=== PATIENT | female | born 1930 | race Caucasian/White ===

== ENCOUNTER 2017-08-07 10:54 | Inpatient (IN) | payer MEDICARE, OTHER ==
[2017-08-07] MEDS: NITROGLYCERIN 2% 1 GM OINT PKT TD (12:51)
[2017-08-07] MEDS: ASPIRIN 81 MG TAB PO (12:51)
[2017-08-07] MEDS ORDERED: NITROGLYCERIN (SL) 0.4 MG TAB SL ×2 (13:00→14:30)
[2017-08-07 13:06] LABS: ADD MAN DIFF? NO
[2017-08-07] MEDS: SOD CHLORIDE 0.9% 1,000 ML IV (13:09)
[2017-08-07 13:12] LABS: WHITE BLOOD COUNT 10.4 10^3/ul (4.8-10.8)
[2017-08-07 13:12] LABS: BASOPHIL # 0.1 10^3/ul (0.0-0.1); BASOPHILS % 0.7 % (0.0-2.0); EOSINOPHILS # 0.1 10^3/ul (0.0-0.5); EOSINOPHILS % 0.9 % (0.0-7.0); HEMATOCRIT 46.2 % (37.0-47.0); HEMOGLOBIN 14.8 g/dl (12.0-16.0); LYMPHOCYTES # 1.4 10^3/ul (0.8-2.9); LYMPHOCYTES % 13.4 % (15.0-51.0); MEAN CORPUSCULAR HEMOGLOBIN 30.2 pg (29.0-33.0); MEAN CORPUSCULAR VOLUME 94.3 fl (82.0-101.0); MEAN PLATELET VOLUME 12.4 fl (7.4-10.4); MONOCYTE # 0.9 10^3/ul (0.3-0.9); MONOCYTES % 8.3 % (0.0-11.0); NEUTROPHILS % 76.4 % (39.0-77.0); PLATELET COUNT 232 10^3/UL (140-415); RED CELL DISTRIBUTION WIDTH 13.1 % (11.5-14.5)
[2017-08-07 13:27] LABS: ANION GAP 15 (8-16); BLOOD UREA NITROGEN 16 mg/dl (7-20); CALCIUM 9.4 mg/dl (8.4-10.2); CARBON DIOXIDE 32 mmol/L (21-31); CHLORIDE 100 mmol/L (97-110); GLUCOSE 94 mg/dl (70-220); POTASSIUM 4.2 mmol/L (3.5-5.1); SODIUM 143 mmol/L (135-144)
[2017-08-07 13:39] LABS: TROPONIN-I 0.025 ng/ml (0.00-0.12)
[2017-08-07] MEDS ORDERED: ACETAMINOPHEN 325 MG TAB PO ×2 (14:00→14:30)
[2017-08-07] MEDS ORDERED: ONDANSETRON 4 MG INJ IV ×2 (14:00→14:30)
[2017-08-07] MEDS ORDERED: morphine 2 MG INJ IV (14:30)
[2017-08-07] MEDS ORDERED: HYDROCODONE/APAP (5/325) TAB PO (14:30)
[2017-08-07] MEDS ORDERED: NACL 0.9% 3 ML SYG IV (14:30)
[2017-08-07 14:54] LABS: HEMOGLOBIN A1C 5.4 % (0-5.9)
[2017-08-07] MEDS: IODIXANOL LOCM 100 ML BTL (14:54)
[2017-08-07] MEDS: SOD CHLORIDE 0.9% 100 ML (14:55)
[2017-08-07] MEDS: IODIXANOL LOCM 50 ML BTL (14:55)
[2017-08-07 15:00] LABS: B-TYPE NATRIURETIC PEPTIDE 11300 PG/ML (0-450)
[2017-08-07] MEDS ORDERED: hydrALAzine 20 MG INJ IV (15:00)
[2017-08-07 15:08] LABS: FREE T4 (FREE THYROXINE) 1.51 ng/dl (0.85-1.93)
[2017-08-07] MEDS: FUROSEMIDE 40 MG INJ IV (17:41)
[2017-08-07 18:07] LABS: ADD UMIC YES; UR ASCORBIC ACID NEGATIVE (NEGATIVE); UR BACTERIA MODERATE /HPF (NONE SEEN); UR BILIRUBIN (Dip) NEGATIVE (NEGATIVE); UR BLOOD (Dip) 2+ mg/dL (NEGATIVE); UR CLARITY CLEAR (CLEAR); UR COLOR YELLOW (YELLOW); UR GLUCOSE (Dip) NEGATIVE (NEGATIVE); UR KETONES (Dip) NEGATIVE (NEGATIVE); UR LEUKOCYTE ESTERASE (Dip) NEGATIVE Leu/ul (NEGATIVE); UR NITRITE (Dip) POSITIVE (NEGATIVE); UR RBC 2 /HPF (0-5); UR TOTAL PROTEIN (Dip) 1+ mg/dl (NEGATIVE); UR UROBILINOGEN (Dip) NEGATIVE (NEGATIVE); UR WBC 1 /HPF (0-5)
[2017-08-07 18:37] LABS: CREATINE KINASE 46 IU/L (23-200)
[2017-08-07 18:49] LABS: CK INDEX 1.8; CK-MB 0.83 ng/ml (0.0-2.4); TROPONIN-I 0.033 ng/ml (0.00-0.12)
[2017-08-08 01:36] LABS: CREATINE KINASE 40 IU/L (23-200)
[2017-08-08 01:47] LABS: CK INDEX 1.8; CK-MB 0.73 ng/ml (0.0-2.4); TROPONIN-I 0.046 ng/ml (0.00-0.12)
[2017-08-08] MEDS: FUROSEMIDE 40 MG INJ IV ×2 (05:39→18:16)
[2017-08-08] MEDS: SPIRONOLACTONE 25 MG TAB PO (05:40)
[2017-08-08 07:25] LABS: ADD MAN DIFF? NO
[2017-08-08 07:31] LABS: BASOPHIL # 0.1 10^3/ul (0.0-0.1); BASOPHILS % 0.9 % (0.0-2.0); EOSINOPHILS # 0.3 10^3/ul (0.0-0.5); EOSINOPHILS % 3.4 % (0.0-7.0); HEMATOCRIT 45.1 % (37.0-47.0); HEMOGLOBIN 14.4 g/dl (12.0-16.0); LYMPHOCYTES # 1.1 10^3/ul (0.8-2.9); LYMPHOCYTES % 13.7 % (15.0-51.0); MEAN CORPUSCULAR HEMOGLOBIN 30.1 pg (29.0-33.0); MEAN CORPUSCULAR HGB CONC 31.9 g/dl (32.0-37.0); MEAN CORPUSCULAR VOLUME 94.4 fl (82.0-101.0); MEAN PLATELET VOLUME 12.3 fl (7.4-10.4); MONOCYTE # 0.8 10^3/ul (0.3-0.9); MONOCYTES % 10.2 % (0.0-11.0); NEUTROPHIL # 5.5 10^3/ul (1.6-7.5); NEUTROPHILS % 71.5 % (39.0-77.0); PLATELET COUNT 218 10^3/UL (140-415); RED BLOOD COUNT 4.78 10^6/ul (4.20-5.40)
[2017-08-08 07:31] LABS: WHITE BLOOD COUNT 7.7 10^3/ul (4.8-10.8)
[2017-08-08 07:53] LABS: ALANINE AMINOTRANSFERASE 29 IU/L (13-69); ALBUMIN 3.6 g/dl (3.3-4.9); ALBUMIN/GLOBULIN RATIO 1.24; ALKALINE PHOSPHATASE 60 IU/L (42-121); ANION GAP 13 (8-16); ASPARTATE AMINO TRANSFERASE 25 IU/L (15-46); BILIRUBIN,INDIRECT 0.4 mg/dl (0-1.1); BILIRUBIN,TOTAL 0.4 mg/dl (0.2-1.3); BLOOD UREA NITROGEN 16 mg/dl (7-20); CALCIUM 9.3 mg/dl (8.4-10.2); CARBON DIOXIDE 35 mmol/L (21-31); CHLORIDE 98 mmol/L (97-110); CREATININE 0.83 mg/dl (0.44-1.00); GLUCOSE 94 mg/dl (70-220); POTASSIUM 4.1 mmol/L (3.5-5.1); SODIUM 142 mmol/L (135-144); TOTAL PROTEIN 6.5 g/dl (6.1-8.1)
[2017-08-08 07:54] LABS: PHOSPHORUS 4.7 mg/dl (2.5-4.9)
[2017-08-08 07:54] LABS: CHOL/HDL RATIO 3.7 RATIO; CHOLESTEROL 156 mg/dl (100-200); HDL CHOLESTEROL 42 mg/dl (33-92); LDL CHOLESTEROL,CALCULATED 99 mg/dl; MAGNESIUM 1.7 mg/dl (1.7-2.5); TRIGLYCERIDES 77 mg/dl (0-149)
[2017-08-08 07:58] LABS: B-TYPE NATRIURETIC PEPTIDE 11000 PG/ML (0-450); INR 1.09; PROTIME 14.3 Sec (11.9-14.9); PT RATIO 1.1
[2017-08-08 07:59] LABS: PARTIAL THROMBOPLASTIN TIME 39.2 Sec (25.0-35.0)
[2017-08-08] MEDS: LEVOTHYROXINE 25 MCG TAB PO (08:40)
[2017-08-08] MEDS: ASPIRIN 81 MG TAB PO (08:41)
[2017-08-08] MEDS: VALSARTAN 80 MG TAB PO (08:41)
[2017-08-08] MEDS: ENOXAPARIN 40 MG/0.4 ML SYG SC (08:48)
[2017-08-08] MEDS: CEFTRIAXONE 1 GM/50 ML (PMX) 50 ML IVPB (13:00)
[2017-08-08] MEDS: FUROSEMIDE 40 MG TAB PO (15:00)
[2017-08-08] MEDS: DOCUSATE SODIUM 100 MG CAP PO (21:10)
[2017-08-08] MEDS: POLYETHYLENE GLYCOL 17 GM PACKET PO (21:11)
[2017-08-09] MEDS: LEVOTHYROXINE 25 MCG TAB PO (06:16)
[2017-08-09] MEDS: SPIRONOLACTONE 25 MG TAB PO (06:16)
[2017-08-09] MEDS: FUROSEMIDE 40 MG INJ IV ×2 (06:16→18:39)
[2017-08-09 07:08] LABS: ADD MAN DIFF? NO
[2017-08-09 07:13] LABS: WHITE BLOOD COUNT 7.8 10^3/ul (4.8-10.8)
[2017-08-09 07:13] LABS: BASOPHIL # 0.1 10^3/ul (0.0-0.1); BASOPHILS % 0.8 % (0.0-2.0); EOSINOPHILS # 0.3 10^3/ul (0.0-0.5); EOSINOPHILS % 4.2 % (0.0-7.0); HEMATOCRIT 46.6 % (37.0-47.0); HEMOGLOBIN 14.8 g/dl (12.0-16.0); LYMPHOCYTES # 1.2 10^3/ul (0.8-2.9); LYMPHOCYTES % 14.8 % (15.0-51.0); MEAN CORPUSCULAR HEMOGLOBIN 30.3 pg (29.0-33.0); MEAN CORPUSCULAR HGB CONC 31.8 g/dl (32.0-37.0); MEAN CORPUSCULAR VOLUME 95.3 fl (82.0-101.0); MEAN PLATELET VOLUME 12.2 fl (7.4-10.4); MONOCYTE # 0.8 10^3/ul (0.3-0.9); MONOCYTES % 10.7 % (0.0-11.0); NEUTROPHIL # 5.4 10^3/ul (1.6-7.5); NEUTROPHILS % 69.2 % (39.0-77.0); PLATELET COUNT 210 10^3/UL (140-415); RED BLOOD COUNT 4.89 10^6/ul (4.20-5.40); RED CELL DISTRIBUTION WIDTH 12.8 % (11.5-14.5)
[2017-08-09 07:31] LABS: BLOOD UREA NITROGEN 20 mg/dl (7-20); CHLORIDE 94 mmol/L (97-110); CREATININE 0.86 mg/dl (0.44-1.00); GLUCOSE 95 mg/dl (70-220); POTASSIUM 4.2 mmol/L (3.5-5.1); SODIUM 141 mmol/L (135-144)
[2017-08-09 07:35] LABS: PHOSPHORUS 4.3 mg/dl (2.5-4.9)
[2017-08-09 07:35] LABS: MAGNESIUM 1.8 mg/dl (1.7-2.5)
[2017-08-09 07:36] LABS: B-TYPE NATRIURETIC PEPTIDE 5930 PG/ML (0-450)
[2017-08-09 08:13] LABS: ANION GAP 13 (8-16); CARBON DIOXIDE 38 mmol/L (21-31)
[2017-08-09] MEDS: DOCUSATE SODIUM 100 MG CAP PO ×2 (09:17→20:20)
[2017-08-09] MEDS: POLYETHYLENE GLYCOL 17 GM PACKET PO (09:17)
[2017-08-09] MEDS: ASPIRIN 81 MG TAB PO (09:17)
[2017-08-09] MEDS: VALSARTAN 80 MG TAB PO (09:17)
[2017-08-09] MEDS: FUROSEMIDE 40 MG TAB PO (09:18)
[2017-08-09] MEDS: ENOXAPARIN 40 MG/0.4 ML SYG SC (09:20)
[2017-08-09] MEDS: CEFTRIAXONE 1 GM/50 ML (PMX) 50 ML IVPB (13:11)
[2017-08-09] MEDS: BISACODYL (EC) 5 MG TAB PO (13:12)
[2017-08-09] MEDS: ISOSORBIDE DINITRATE 10 MG TAB PO (20:17)
[2017-08-10] MEDS: LEVOTHYROXINE 25 MCG TAB PO (05:57)
[2017-08-10] MEDS: FUROSEMIDE 40 MG INJ IV ×2 (05:58→17:30)
[2017-08-10] MEDS: SPIRONOLACTONE 25 MG TAB PO (05:58)
[2017-08-10 06:59] LABS: BLOOD UREA NITROGEN 30 mg/dl (7-20); CHLORIDE 93 mmol/L (97-110); CREATININE 0.88 mg/dl (0.44-1.00); GLUCOSE 109 mg/dl (70-220); SODIUM 141 mmol/L (135-144)
[2017-08-10 07:30] LABS: ANION GAP 11 (8-16)
[2017-08-10 07:32] LABS: CARBON DIOXIDE 41 mmol/L (21-31)
[2017-08-10 07:46] LABS: CALCIUM 8.9 mg/dl (8.4-10.2)
[2017-08-10] MEDS: VALSARTAN 80 MG TAB PO (09:15)
[2017-08-10] MEDS: DOCUSATE SODIUM 100 MG CAP PO ×2 (09:15→20:45)
[2017-08-10] MEDS: ENOXAPARIN 40 MG/0.4 ML SYG SC (09:20)
[2017-08-10] MEDS: ISOSORBIDE DINITRATE 10 MG TAB PO ×3 (09:21→20:46)
[2017-08-10] MEDS: ASPIRIN 81 MG TAB PO (09:21)
[2017-08-10] MEDS: CEFTRIAXONE 1 GM/50 ML (PMX) 50 ML IVPB (13:13)
[2017-08-11] MEDS: LEVOTHYROXINE 25 MCG TAB PO (05:50)
[2017-08-11] MEDS: SPIRONOLACTONE 25 MG TAB PO (05:50)
[2017-08-11] MEDS: FUROSEMIDE 40 MG INJ IV ×2 (05:50→18:44)
[2017-08-11 07:27] LABS: ADD MAN DIFF? NO
[2017-08-11 07:38] LABS: WHITE BLOOD COUNT 6.2 10^3/ul (4.8-10.8)
[2017-08-11 07:38] LABS: BASOPHIL # 0.1 10^3/ul (0.0-0.1); BASOPHILS % 0.8 % (0.0-2.0); EOSINOPHILS # 0.5 10^3/ul (0.0-0.5); EOSINOPHILS % 7.3 % (0.0-7.0); HEMATOCRIT 45.8 % (37.0-47.0); HEMOGLOBIN 14.8 g/dl (12.0-16.0); LYMPHOCYTES # 1.4 10^3/ul (0.8-2.9); LYMPHOCYTES % 22.5 % (15.0-51.0); MEAN CORPUSCULAR HEMOGLOBIN 30.5 pg (29.0-33.0); MEAN CORPUSCULAR HGB CONC 32.3 g/dl (32.0-37.0); MEAN CORPUSCULAR VOLUME 94.2 fl (82.0-101.0); MEAN PLATELET VOLUME 12.4 fl (7.4-10.4); MONOCYTE # 0.7 10^3/ul (0.3-0.9); NEUTROPHIL # 3.6 10^3/ul (1.6-7.5); NEUTROPHILS % 58.2 % (39.0-77.0); PLATELET COUNT 190 10^3/UL (140-415); RED BLOOD COUNT 4.86 10^6/ul (4.20-5.40); RED CELL DISTRIBUTION WIDTH 13.2 % (11.5-14.5)
[2017-08-11 07:56] LABS: ANION GAP 15 (8-16); BLOOD UREA NITROGEN 36 mg/dl (7-20); CARBON DIOXIDE 38 mmol/L (21-31); CHLORIDE 91 mmol/L (97-110); CREATININE 0.92 mg/dl (0.44-1.00); GLUCOSE 101 mg/dl (70-220); POTASSIUM 3.7 mmol/L (3.5-5.1); SODIUM 140 mmol/L (135-144)
[2017-08-11] MEDS: VALSARTAN 80 MG TAB PO (08:06)
[2017-08-11] MEDS: DOCUSATE SODIUM 100 MG CAP PO ×2 (08:07→20:43)
[2017-08-11] MEDS: ASPIRIN 81 MG TAB PO (08:07)
[2017-08-11] MEDS: ISOSORBIDE DINITRATE 10 MG TAB PO ×3 (08:07→20:43)
[2017-08-11] MEDS: ENOXAPARIN 40 MG/0.4 ML SYG SC (08:08)
[2017-08-11] MEDS: ACETAZOLAMIDE 250 MG TAB PO (09:13)
[2017-08-11] MEDS: CEFTRIAXONE 1 GM/50 ML (PMX) 50 ML IVPB (13:31)
[2017-08-12] MEDS: FUROSEMIDE 40 MG INJ IV (05:42)
[2017-08-12] MEDS: SPIRONOLACTONE 25 MG TAB PO (05:43)
[2017-08-12] MEDS: LEVOTHYROXINE 25 MCG TAB PO (05:44)
[2017-08-12] MEDS: ISOSORBIDE DINITRATE 10 MG TAB PO ×3 (09:18→20:22)
[2017-08-12] MEDS: ACETAZOLAMIDE 250 MG TAB PO (09:18)
[2017-08-12] MEDS: VALSARTAN 80 MG TAB PO (09:18)
[2017-08-12] MEDS: DOCUSATE SODIUM 100 MG CAP PO ×2 (09:18→20:22)
[2017-08-12] MEDS: ASPIRIN 81 MG TAB PO (09:19)
[2017-08-12] MEDS: ENOXAPARIN 40 MG/0.4 ML SYG SC (09:35)
[2017-08-12] MEDS: CEFTRIAXONE 1 GM/50 ML (PMX) 50 ML IVPB (14:07)
[2017-08-12] MEDS: PROMETHAZINE/CODEINE 5ML CUP PO ×2 (15:43→22:15)
[2017-08-13] MEDS: LEVOTHYROXINE 25 MCG TAB PO (06:44)
[2017-08-13] MEDS: SPIRONOLACTONE 25 MG TAB PO (06:44)
[2017-08-13] MEDS: VALSARTAN 80 MG TAB PO (08:43)
[2017-08-13] MEDS: ASPIRIN 81 MG TAB PO (08:43)
[2017-08-13] MEDS: FUROSEMIDE 40 MG INJ IV (08:43)
[2017-08-13] MEDS: ACETAZOLAMIDE 250 MG TAB PO (08:44)
[2017-08-13] MEDS: DOCUSATE SODIUM 100 MG CAP PO (08:44)
[2017-08-13] MEDS: ISOSORBIDE DINITRATE 10 MG TAB PO ×2 (08:44→13:00)
[2017-08-13] MEDS: ENOXAPARIN 40 MG/0.4 ML SYG SC (08:51)
[2017-08-13] MEDS: PROMETHAZINE/CODEINE 5ML CUP PO ×2 (08:54→15:17)
[2017-08-13] MEDS: CEFTRIAXONE 1 GM/50 ML (PMX) 50 ML IVPB (13:12)
== END 2017-08-13 18:20 | DRG 291 ==
LOC: E/R 10:54 → TEL 13:50
DX: I11.0 Hypertensive heart disease with heart failure (principal); J96.01 Acute respiratory failure with hypoxia; N39.0 Urinary tract infection, site not specified; I42.9 Cardiomyopathy, unspecified; B96.20 Unspecified Escherichia coli [E. coli] as the cause of diseases classified elsewhere; R07.89 Other chest pain; I44.7 Left bundle-branch block, unspecified; E03.9 Hypothyroidism, unspecified
CPT/HCPCS: 36415; 71045; 71275; 80048; 80053; 80061; 81001; 82550; 82553; 83036; 83735; 83880; 84100; 84439; 84443; 84484; 85025; 85610; 85730; 87086; 87400; 93005; 97110; 97116; 97162; 97530; 99285-25; G0378

== ENCOUNTER 2017-11-12 08:18 | Observation (INO) | payer MEDICARE, OTHER ==
[~2017-11-12 08:18] MED LIST: CEFAZOLIN 1 GM/50 ML (PMX) 50 ML IVPB; DIAZEPAM 5 MG TAB PO; SOD CHLORIDE 0.45% 1,000 ML IV
[2017-11-12 09:20] LABS: ADD MAN DIFF? NO
[2017-11-12 09:24] LABS: BASOPHILS % 0.4 % (0.0-2.0); EOSINOPHILS # 0.2 10^3/ul (0.0-0.5); EOSINOPHILS % 2.5 % (0.0-7.0); HEMATOCRIT 42.8 % (37.0-47.0); HEMOGLOBIN 14.2 g/dl (12.0-16.0); LYMPHOCYTES % 21.2 % (15.0-51.0); MEAN CORPUSCULAR HEMOGLOBIN 30.2 pg (29.0-33.0); MEAN CORPUSCULAR HGB CONC 33.2 g/dl (32.0-37.0); MEAN CORPUSCULAR VOLUME 91.1 fl (82.0-101.0); MEAN PLATELET VOLUME 11.6 fl (7.4-10.4); MONOCYTE # 0.8 10^3/ul (0.3-0.9); MONOCYTES % 8.8 % (0.0-11.0); NEUTROPHIL # 6.2 10^3/ul (1.6-7.5); NEUTROPHILS % 66.8 % (39.0-77.0); PLATELET COUNT 226 10^3/UL (140-415); RED CELL DISTRIBUTION WIDTH 14.5 % (11.5-14.5)
[2017-11-12 09:24] LABS: WHITE BLOOD COUNT 9.3 10^3/ul (4.8-10.8)
[2017-11-12 09:43] LABS: INR 0.98; PROTIME 13.1 Sec (11.9-14.9)
[2017-11-12 09:47] LABS: ALANINE AMINOTRANSFERASE 22 IU/L (13-69); ALBUMIN 4.1 g/dl (3.3-4.9); ALBUMIN/GLOBULIN RATIO 1.13; ALKALINE PHOSPHATASE 74 IU/L (42-121); ANION GAP 15 (8-16); ASPARTATE AMINO TRANSFERASE 33 IU/L (15-46); BILIRUBIN,INDIRECT 0.4 mg/dl (0-1.1); BILIRUBIN,TOTAL 0.4 mg/dl (0.2-1.3); CARBON DIOXIDE 26 mmol/L (21-31); CHLORIDE 104 mmol/L (97-110); CHOL/HDL RATIO 3.6 RATIO; CHOLESTEROL 196 mg/dl (100-200); GLUCOSE 102 mg/dl (70-220); HDL CHOLESTEROL 54 mg/dl (33-92); LDL CHOLESTEROL,CALCULATED 124 mg/dl; TOTAL PROTEIN 7.7 g/dl (6.1-8.1); TRIGLYCERIDES 90 mg/dl (0-149)
[2017-11-12 09:50] LABS: BLOOD UREA NITROGEN 35 mg/dl (7-20); CALCIUM 8.9 mg/dl (8.4-10.2); CREATININE 0.92 mg/dl (0.44-1.00); POTASSIUM 5.1 mmol/L (3.5-5.1); SODIUM 140 mmol/L (135-144)
[2017-11-12 10:10] LABS: PARTIAL THROMBOPLASTIN TIME 36.1 Sec (25.0-35.0)
[2017-11-12] MEDS ORDERED: POLYMYXIN/BACITRACIN 1L IRRIG IRR (10:30)
[2017-11-12] MEDS ORDERED: LIDOCAINE 1%/EPI 30 ML INJ (10:41)
[2017-11-12] MEDS ORDERED: CEFAZOLIN 2 GM/50 ML (PMX) 50 ML IVPB (10:41)
[2017-11-12] MEDS ORDERED: BUPIVACAINE 0.5% (SDV) 30 ML INJ (10:43)
[2017-11-12] MEDS ORDERED: MIDAZOLAM 1 MG/ML 2 ML INJ (11:29)
[2017-11-12] MEDS ORDERED: ETOMIDATE 20 MG INJ (11:29)
[2017-11-12] MEDS ORDERED: FENTAnyl 50 MCG/ML VIAL (11:29)
[2017-11-12] MEDS ORDERED: morphine 10 MG INJ IV (13:04)
[2017-11-12] MEDS ORDERED: ONDANSETRON 4 MG INJ IV (15:00)
[2017-11-12] MEDS ORDERED: NACL 0.9% 3 ML SYG IV (15:00)
[2017-11-12] MEDS ORDERED: HYDROCODONE/APAP (5/325) TAB PO (15:00)
[2017-11-12] MEDS: ACETAMINOPHEN 325 MG TAB PO (16:58)
[2017-11-12] MEDS: CEFAZOLIN 1 GM/50 ML (PMX) 50 ML IVPB (22:33)
[2017-11-13] MEDS: ACETAMINOPHEN 325 MG TAB PO ×2 (02:00→15:52)
[2017-11-13] MEDS ORDERED: SPIRONOLACTONE 25 MG TAB PO (06:00)
[2017-11-13] MEDS: LEVOTHYROXINE 100 MCG TAB PO (06:46)
[2017-11-13] MEDS: SPIRONOLACTONE 25 MG TAB PO (06:47)
[2017-11-13 07:11] LABS: ADD MAN DIFF? NO
[2017-11-13 07:19] LABS: BASOPHIL # 0.1 10^3/ul (0.0-0.1); BASOPHILS % 0.7 % (0.0-2.0); EOSINOPHILS # 0.4 10^3/ul (0.0-0.5); EOSINOPHILS % 3.9 % (0.0-7.0); HEMATOCRIT 44.1 % (37.0-47.0); LYMPHOCYTES % 22.6 % (15.0-51.0); MEAN CORPUSCULAR HEMOGLOBIN 29.7 pg (29.0-33.0); MEAN CORPUSCULAR HGB CONC 31.7 g/dl (32.0-37.0); MEAN CORPUSCULAR VOLUME 93.6 fl (82.0-101.0); MEAN PLATELET VOLUME 11.5 fl (7.4-10.4); MONOCYTES % 10.9 % (0.0-11.0); NEUTROPHIL # 5.5 10^3/ul (1.6-7.5); NEUTROPHILS % 61.4 % (39.0-77.0); PLATELET COUNT 216 10^3/UL (140-415); RED BLOOD COUNT 4.71 10^6/ul (4.20-5.40); RED CELL DISTRIBUTION WIDTH 14.3 % (11.5-14.5)
[2017-11-13 07:19] LABS: WHITE BLOOD COUNT 8.9 10^3/ul (4.8-10.8)
[2017-11-13 07:50] LABS: CHOL/HDL RATIO 3.4 RATIO; HDL CHOLESTEROL 50 mg/dl (33-92); LDL CHOLESTEROL,CALCULATED 106 mg/dl; TRIGLYCERIDES 78 mg/dl (0-149)
[2017-11-13 07:50] LABS: CHOLESTEROL 172 mg/dl (100-200)
[2017-11-13 07:56] LABS: ANION GAP 13 (8-16); BLOOD UREA NITROGEN 32 mg/dl (7-20); CALCIUM 8.6 mg/dl (8.4-10.2); CARBON DIOXIDE 31 mmol/L (21-31); CHLORIDE 102 mmol/L (97-110); CREATININE 0.96 mg/dl (0.44-1.00); GLUCOSE 94 mg/dl (70-220); POTASSIUM 5.1 mmol/L (3.5-5.1); SODIUM 141 mmol/L (135-144)
[2017-11-13 07:59] LABS: FREE T4 (FREE THYROXINE) 1.36 ng/dl (0.85-1.93)
[2017-11-13] MEDS: VALSARTAN 160 MG TAB PO (08:14)
[2017-11-13] MEDS: FUROSEMIDE 40 MG TAB PO (08:14)
[2017-11-13] MEDS: CEFAZOLIN 1 GM/50 ML (PMX) 50 ML IVPB (08:16)
[2017-11-13 08:17] LABS: HEMOGLOBIN A1C 5.4 % (0-5.9)
[2017-11-13] MEDS ORDERED: FUROSEMIDE 20 MG TAB PO (09:00)
== END 2017-11-13 17:09 | disposition home or self-care (01) ==
LOC: SDS 08:18 → REC 14:55 → TEL 15:35
DX: I25.5 Ischemic cardiomyopathy (principal); E03.9 Hypothyroidism, unspecified; I25.10 Atherosclerotic heart disease of native coronary artery without angina pectoris; I11.0 Hypertensive heart disease with heart failure; I50.22 Chronic systolic (congestive) heart failure; E78.5 Hyperlipidemia, unspecified; Z79.82 Long term (current) use of aspirin
CPT/HCPCS: 33249; 71045; 80048; 80053; 80061; 80076; 83036; 83735; 84100; 84439; 84443; 85025; 85610; 85730; 93005; 99217; G0378

== ENCOUNTER 2018-02-11 09:18 | Inpatient (IN) | payer MEDICARE, OTHER ==
[2018-02-11] MEDS: ONDANSETRON 4 MG INJ IV (10:23)
[2018-02-11] MEDS: SOD CHLORIDE 0.9% 500 ML IV (10:23)
[2018-02-11 11:02] LABS: ADD MAN DIFF? NO
[2018-02-11 11:06] LABS: WHITE BLOOD COUNT 8.7 10^3/ul (4.8-10.8)
[2018-02-11 11:06] LABS: BASOPHIL # 0.1 10^3/ul (0.0-0.1); BASOPHILS % 0.7 % (0.0-2.0); EOSINOPHILS # 0.1 10^3/ul (0.0-0.5); EOSINOPHILS % 1.6 % (0.0-7.0); HEMATOCRIT 46.5 % (37.0-47.0); HEMOGLOBIN 14.3 g/dl (12.0-16.0); LYMPHOCYTES # 1.6 10^3/ul (0.8-2.9); MEAN CORPUSCULAR HEMOGLOBIN 29.6 pg (29.0-33.0); MEAN CORPUSCULAR HGB CONC 30.8 g/dl (32.0-37.0); MEAN CORPUSCULAR VOLUME 96.3 fl (82.0-101.0); MEAN PLATELET VOLUME 12.5 fl (7.4-10.4); MONOCYTE # 0.7 10^3/ul (0.3-0.9); MONOCYTES % 7.7 % (0.0-11.0); NEUTROPHIL # 6.3 10^3/ul (1.6-7.5); NEUTROPHILS % 71.8 % (39.0-77.0); PLATELET COUNT 136 10^3/UL (140-415); RED BLOOD COUNT 4.83 10^6/ul (4.20-5.40); RED CELL DISTRIBUTION WIDTH 13.4 % (11.5-14.5)
[2018-02-11 11:26] LABS: ALANINE AMINOTRANSFERASE 21 IU/L (13-69); ALBUMIN 3.5 g/dl (3.3-4.9); ALBUMIN/GLOBULIN RATIO 1.09; ALKALINE PHOSPHATASE 50 IU/L (42-121); ANION GAP 11 (8-16); ASPARTATE AMINO TRANSFERASE 24 IU/L (15-46); BILIRUBIN,INDIRECT 0.5 mg/dl (0-1.1); BILIRUBIN,TOTAL 0.5 mg/dl (0.2-1.3); BLOOD UREA NITROGEN 20 mg/dl (7-20); CALCIUM 8.8 mg/dl (8.4-10.2); CARBON DIOXIDE 30 mmol/L (21-31); CHLORIDE 107 mmol/L (97-110); CREATINE KINASE 32 IU/L (23-200); CREATININE 0.85 mg/dl (0.44-1.00); GLUCOSE 96 mg/dl (70-220); LIPASE 34 U/L (23-300); SODIUM 144 mmol/L (135-144); TOTAL PROTEIN 6.7 g/dl (6.1-8.1)
[2018-02-11 11:38] LABS: PT RATIO 1.1
[2018-02-11 11:39] LABS: B-TYPE NATRIURETIC PEPTIDE 9020 PG/ML (0-450); CK-MB 0.32 ng/ml (0.0-2.4); TROPONIN-I 0.024 ng/ml (0.000-0.120)
[2018-02-11 11:51] LABS: PARTIAL THROMBOPLASTIN TIME 35.8 Sec (25.0-35.0)
[2018-02-11 12:08] LABS: INR 1.12; PROTIME 14.6 Sec (11.9-14.9)
[2018-02-11] MEDS ORDERED: ONDANSETRON 4 MG INJ IV (14:00)
[2018-02-11] MEDS: ALBUTEROL 0.083% (NEB) 2.5 MG/3 ML AMP NEB (14:07)
[2018-02-11] MEDS: IPRATROPIUM (NEB) 0.5 MG/2.5 ML AMP NEB (14:07)
[2018-02-11] MEDS: FUROSEMIDE 40 MG INJ IV (14:40)
[2018-02-11] MEDS ORDERED: MECLIZINE 25 MG TAB PO (15:30)
[2018-02-11] MEDS: ACETAMINOPHEN 325 MG TAB PO (23:19)
[2018-02-12 01:28] LABS: TROPONIN-I 0.052 ng/ml (0.000-0.120)
[2018-02-12] MEDS: LATANOPROST 0.005% 2.5 ML OPH BOTH EYES ×2 (06:22→21:15)
[2018-02-12] MEDS: LEVOTHYROXINE 50 MCG TAB PO (06:22)
[2018-02-12 06:49] LABS: CHOL/HDL RATIO 3.7 RATIO; HDL CHOLESTEROL 40 mg/dl (33-92); LDL CHOLESTEROL,CALCULATED 91 mg/dl; TRIGLYCERIDES 86 mg/dl (0-149)
[2018-02-12 06:49] LABS: CHOLESTEROL 148 mg/dl (100-200)
[2018-02-12 06:50] LABS: TROPONIN-I 0.054 ng/ml (0.000-0.120)
[2018-02-12] MEDS: FUROSEMIDE 40 MG INJ IV ×2 (08:57→17:24)
[2018-02-12] MEDS: SPIRONOLACTONE 25 MG TAB PO (08:57)
[2018-02-12] MEDS: ASPIRIN 81 MG TAB PO (08:58)
[2018-02-12] MEDS: LOSARTAN 50 MG TAB PO (08:58)
[2018-02-12] MEDS ORDERED: NON-FORMULARY/PATIENT OWN MED (Valsartan* (Diovan*) 160 MG) PO (09:00)
[2018-02-13 06:24] LABS: ADD MAN DIFF? NO
[2018-02-13 06:32] LABS: BASOPHIL # 0.1 10^3/ul (0.0-0.1); BASOPHILS % 0.6 % (0.0-2.0); EOSINOPHILS # 0.3 10^3/ul (0.0-0.5); HEMATOCRIT 51.7 % (37.0-47.0); HEMOGLOBIN 15.9 g/dl (12.0-16.0); LYMPHOCYTES # 1.9 10^3/ul (0.8-2.9); LYMPHOCYTES % 23.9 % (15.0-51.0); MEAN CORPUSCULAR HEMOGLOBIN 29.7 pg (29.0-33.0); MEAN CORPUSCULAR HGB CONC 30.8 g/dl (32.0-37.0); MEAN CORPUSCULAR VOLUME 96.5 fl (82.0-101.0); MEAN PLATELET VOLUME 12.9 fl (7.4-10.4); MONOCYTE # 0.9 10^3/ul (0.3-0.9); MONOCYTES % 10.7 % (0.0-11.0); NEUTROPHIL # 4.8 10^3/ul (1.6-7.5); NEUTROPHILS % 60.5 % (39.0-77.0); PLATELET COUNT 121 10^3/UL (140-415); RED BLOOD COUNT 5.36 10^6/ul (4.20-5.40); RED CELL DISTRIBUTION WIDTH 13.2 % (11.5-14.5)
[2018-02-13 06:32] LABS: WHITE BLOOD COUNT 7.9 10^3/ul (4.8-10.8)
[2018-02-13] MEDS: LEVOTHYROXINE 50 MCG TAB PO (07:04)
[2018-02-13] MEDS: FUROSEMIDE 40 MG INJ IV (07:05)
[2018-02-13 07:33] LABS: ANION GAP 10 (8-16); BLOOD UREA NITROGEN 36 mg/dl (7-20); CALCIUM 8.5 mg/dl (8.4-10.2); CARBON DIOXIDE 36 mmol/L (21-31); CHLORIDE 97 mmol/L (97-110); CREATININE 1.19 mg/dl (0.44-1.00); GLUCOSE 94 mg/dl (70-220); SODIUM 139 mmol/L (135-144)
[2018-02-13] MEDS: SPIRONOLACTONE 25 MG TAB PO (08:45)
[2018-02-13] MEDS: ASPIRIN 81 MG TAB PO (08:45)
[2018-02-13] MEDS: LOSARTAN 50 MG TAB PO (08:46)
[2018-02-13] MEDS: DOCUSATE SODIUM 100 MG CAP PO ×2 (12:39→19:58)
[2018-02-13 13:51] LABS: AADO2 Arterial 28.5 mmHg (7.0-24.0); Allen Test ACCEPTAB; Arterial Base Excess 7.8 mmol/L (-3.0-3); Arterial Blood Gas Oxygen Sat 82.4 mmHG (95.0-100.0); Arterial COHb 0.6 % (0.0-3.0); Arterial Fraction of Oxyhgb 81.7 % (93.0-99.0); Arterial HCO3 35.8 mmol/L (22.0-26.0); Arterial MetHb 0.3 % (0.0-1.5); Arterial Total Hemglobin 16.7 g/dl (12.0-18.0); Arterial pCO2 62.6 mmhg (35-45); MODE ROOM AIR; Site Right Radial
[2018-02-13] MEDS: LATANOPROST 0.005% 2.5 ML OPH BOTH EYES (19:59)
[2018-02-14] MEDS: LEVOTHYROXINE 50 MCG TAB PO (05:10)
[2018-02-14] MEDS: FUROSEMIDE 40 MG INJ IV (05:10)
[2018-02-14 06:22] LABS: ADD MAN DIFF? NO
[2018-02-14 06:36] LABS: BASOPHILS % 0.5 % (0.0-2.0); EOSINOPHILS # 0.3 10^3/ul (0.0-0.5); EOSINOPHILS % 4.4 % (0.0-7.0); HEMATOCRIT 53.5 % (37.0-47.0); HEMOGLOBIN 16.5 g/dl (12.0-16.0); LYMPHOCYTES # 2.1 10^3/ul (0.8-2.9); LYMPHOCYTES % 27.7 % (15.0-51.0); MEAN CORPUSCULAR HGB CONC 30.8 g/dl (32.0-37.0); MEAN CORPUSCULAR VOLUME 94.2 fl (82.0-101.0); MEAN PLATELET VOLUME 12.6 fl (7.4-10.4); MONOCYTE # 0.8 10^3/ul (0.3-0.9); MONOCYTES % 11.1 % (0.0-11.0); NEUTROPHIL # 4.2 10^3/ul (1.6-7.5); PLATELET COUNT 145 10^3/UL (140-415); RED BLOOD COUNT 5.68 10^6/ul (4.20-5.40); RED CELL DISTRIBUTION WIDTH 13.2 % (11.5-14.5)
[2018-02-14 06:36] LABS: WHITE BLOOD COUNT 7.5 10^3/ul (4.8-10.8)
[2018-02-14 06:48] LABS: CALCIUM 8.8 mg/dl (8.4-10.2); CHLORIDE 93 mmol/L (97-110); CREATININE 0.96 mg/dl (0.44-1.00); POTASSIUM 4.3 mmol/L (3.5-5.1); SODIUM 138 mmol/L (135-144)
[2018-02-14 06:59] LABS: ANION GAP 12 (8-16); BLOOD UREA NITROGEN 39 mg/dl (7-20); CARBON DIOXIDE 37 mmol/L (21-31); GLUCOSE 101 mg/dl (70-220)
[2018-02-14] MEDS: ASPIRIN 81 MG TAB PO (08:30)
[2018-02-14] MEDS: DOCUSATE SODIUM 100 MG CAP PO ×2 (08:30→19:55)
[2018-02-14] MEDS: SPIRONOLACTONE 25 MG TAB PO (08:30)
[2018-02-14] MEDS: LOSARTAN 50 MG TAB PO (08:33)
[2018-02-14] MEDS: SENNA TAB PO ×2 (14:05→19:55)
[2018-02-14] MEDS ORDERED: BISACODYL (EC) 5 MG TAB PO (15:00)
[2018-02-14] MEDS: LATANOPROST 0.005% 2.5 ML OPH BOTH EYES (19:56)
[2018-02-15] MEDS: DOCUSATE SODIUM 100 MG CAP PO ×2 (05:22→21:04)
[2018-02-15] MEDS: SENNA TAB PO ×2 (05:23→21:04)
[2018-02-15] MEDS: LEVOTHYROXINE 50 MCG TAB PO (05:23)
[2018-02-15] MEDS: FUROSEMIDE 40 MG INJ IV (05:25)
[2018-02-15 06:35] LABS: ADD MAN DIFF? NO
[2018-02-15 06:41] LABS: WHITE BLOOD COUNT 7.6 10^3/ul (4.8-10.8)
[2018-02-15 06:41] LABS: BASOPHIL # 0.1 10^3/ul (0.0-0.1); BASOPHILS % 0.8 % (0.0-2.0); EOSINOPHILS # 0.3 10^3/ul (0.0-0.5); EOSINOPHILS % 3.8 % (0.0-7.0); HEMATOCRIT 54.4 % (37.0-47.0); HEMOGLOBIN 17.1 g/dl (12.0-16.0); LYMPHOCYTES # 2.3 10^3/ul (0.8-2.9); LYMPHOCYTES % 30.1 % (15.0-51.0); MEAN CORPUSCULAR HEMOGLOBIN 29.2 pg (29.0-33.0); MEAN CORPUSCULAR HGB CONC 31.4 g/dl (32.0-37.0); MEAN CORPUSCULAR VOLUME 92.8 fl (82.0-101.0); MONOCYTE # 0.8 10^3/ul (0.3-0.9); MONOCYTES % 10.5 % (0.0-11.0); NEUTROPHIL # 4.2 10^3/ul (1.6-7.5); NEUTROPHILS % 54.5 % (39.0-77.0); PLATELET COUNT 148 10^3/UL (140-415); RED BLOOD COUNT 5.86 10^6/ul (4.20-5.40); RED CELL DISTRIBUTION WIDTH 13.2 % (11.5-14.5)
[2018-02-15 07:06] LABS: ANION GAP 14 (8-16); BLOOD UREA NITROGEN 44 mg/dl (7-20); CALCIUM 9.1 mg/dl (8.4-10.2); CARBON DIOXIDE 37 mmol/L (21-31); CHLORIDE 92 mmol/L (97-110); CREATININE 0.98 mg/dl (0.44-1.00); GLUCOSE 105 mg/dl (70-220); POTASSIUM 4.5 mmol/L (3.5-5.1); SODIUM 138 mmol/L (135-144)
[2018-02-15] MEDS: ASPIRIN 81 MG TAB PO (08:22)
[2018-02-15] MEDS: SPIRONOLACTONE 25 MG TAB PO (08:22)
[2018-02-15] MEDS: LOSARTAN 50 MG TAB PO (08:23)
[2018-02-15] MEDS: LATANOPROST 0.005% 2.5 ML OPH BOTH EYES (21:05)
[2018-02-16 05:55] LABS: ADD MAN DIFF? NO
[2018-02-16] MEDS: LEVOTHYROXINE 50 MCG TAB PO (06:01)
[2018-02-16] MEDS: FUROSEMIDE 40 MG INJ IV (06:01)
[2018-02-16 06:04] LABS: BASOPHIL # 0.1 10^3/ul (0.0-0.1); BASOPHILS % 0.9 % (0.0-2.0); EOSINOPHILS # 0.3 10^3/ul (0.0-0.5); HEMATOCRIT 51.8 % (37.0-47.0); HEMOGLOBIN 16.2 g/dl (12.0-16.0); LYMPHOCYTES # 2.4 10^3/ul (0.8-2.9); LYMPHOCYTES % 31.6 % (15.0-51.0); MEAN CORPUSCULAR HGB CONC 31.3 g/dl (32.0-37.0); MEAN CORPUSCULAR VOLUME 92.8 fl (82.0-101.0); MONOCYTE # 0.8 10^3/ul (0.3-0.9); MONOCYTES % 10.6 % (0.0-11.0); NEUTROPHIL # 4.1 10^3/ul (1.6-7.5); NEUTROPHILS % 52.6 % (39.0-77.0); PLATELET COUNT 136 10^3/UL (140-415); RED BLOOD COUNT 5.58 10^6/ul (4.20-5.40); RED CELL DISTRIBUTION WIDTH 13.2 % (11.5-14.5)
[2018-02-16 06:04] LABS: WHITE BLOOD COUNT 7.7 10^3/ul (4.8-10.8)
[2018-02-16 07:02] LABS: ANION GAP 12 (8-16); BLOOD UREA NITROGEN 43 mg/dl (7-20); CARBON DIOXIDE 35 mmol/L (21-31); CHLORIDE 95 mmol/L (97-110); CREATININE 1.02 mg/dl (0.44-1.00); GLUCOSE 96 mg/dl (70-220); POTASSIUM 4.8 mmol/L (3.5-5.1); SODIUM 137 mmol/L (135-144)
[2018-02-16] MEDS: ASPIRIN 81 MG TAB PO (09:42)
[2018-02-16] MEDS: SENNA TAB PO ×2 (09:42→20:35)
[2018-02-16] MEDS: LOSARTAN 50 MG TAB PO (09:43)
[2018-02-16] MEDS: DOCUSATE SODIUM 100 MG CAP PO ×2 (09:44→20:35)
[2018-02-16] MEDS: SPIRONOLACTONE 25 MG TAB PO (09:45)
[2018-02-16] MEDS: FUROSEMIDE 40 MG TAB PO (17:53)
[2018-02-16] MEDS: LATANOPROST 0.005% 2.5 ML OPH BOTH EYES (21:40)
[2018-02-17 05:29] LABS: ADD MAN DIFF? NO
[2018-02-17 05:33] LABS: BASOPHILS % 0.6 % (0.0-2.0); EOSINOPHILS # 0.3 10^3/ul (0.0-0.5); EOSINOPHILS % 4.3 % (0.0-7.0); HEMATOCRIT 49.4 % (37.0-47.0); HEMOGLOBIN 15.7 g/dl (12.0-16.0); LYMPHOCYTES % 30.6 % (15.0-51.0); MEAN CORPUSCULAR HEMOGLOBIN 29.7 pg (29.0-33.0); MEAN CORPUSCULAR HGB CONC 31.8 g/dl (32.0-37.0); MEAN CORPUSCULAR VOLUME 93.6 fl (82.0-101.0); MEAN PLATELET VOLUME 12.7 fl (7.4-10.4); MONOCYTE # 0.8 10^3/ul (0.3-0.9); MONOCYTES % 12.2 % (0.0-11.0); NEUTROPHIL # 3.4 10^3/ul (1.6-7.5); PLATELET COUNT 135 10^3/UL (140-415); RED BLOOD COUNT 5.28 10^6/ul (4.20-5.40); RED CELL DISTRIBUTION WIDTH 12.9 % (11.5-14.5)
[2018-02-17 05:33] LABS: WHITE BLOOD COUNT 6.6 10^3/ul (4.8-10.8)
[2018-02-17] MEDS: FUROSEMIDE 40 MG TAB PO ×2 (05:53→17:18)
[2018-02-17] MEDS: LEVOTHYROXINE 50 MCG TAB PO (05:53)
[2018-02-17 06:25] LABS: ANION GAP 14 (8-16); BLOOD UREA NITROGEN 53 mg/dl (7-20); CALCIUM 8.8 mg/dl (8.4-10.2); CARBON DIOXIDE 35 mmol/L (21-31); CHLORIDE 94 mmol/L (97-110); CREATININE 1.09 mg/dl (0.44-1.00); GLUCOSE 99 mg/dl (70-220); POTASSIUM 4.4 mmol/L (3.5-5.1); SODIUM 139 mmol/L (135-144)
[2018-02-17] MEDS: SENNA TAB PO ×2 (08:48→20:13)
[2018-02-17] MEDS: ASPIRIN 81 MG TAB PO (08:48)
[2018-02-17] MEDS: DOCUSATE SODIUM 100 MG CAP PO ×2 (08:48→20:13)
[2018-02-17] MEDS: LOSARTAN 50 MG TAB PO (08:49)
[2018-02-17] MEDS: SPIRONOLACTONE 25 MG TAB PO (08:49)
[2018-02-17] MEDS: LATANOPROST 0.005% 2.5 ML OPH BOTH EYES (20:13)
[2018-02-18] MEDS: FUROSEMIDE 40 MG TAB PO (05:06)
[2018-02-18] MEDS: LEVOTHYROXINE 50 MCG TAB PO (05:06)
[2018-02-18] MEDS: SENNA TAB PO ×2 (09:07→20:06)
[2018-02-18] MEDS: SPIRONOLACTONE 25 MG TAB PO (09:08)
[2018-02-18] MEDS: ASPIRIN 81 MG TAB PO (09:08)
[2018-02-18] MEDS: DOCUSATE SODIUM 100 MG CAP PO ×2 (09:08→20:06)
[2018-02-18] MEDS: LOSARTAN 25 MG TAB PO (09:10)
[2018-02-18] MEDS: LATANOPROST 0.005% 2.5 ML OPH BOTH EYES (20:06)
[2018-02-19 06:13] LABS: ANION GAP 12 (8-16); BLOOD UREA NITROGEN 57 mg/dl (7-20); CALCIUM 9.1 mg/dl (8.4-10.2); CARBON DIOXIDE 36 mmol/L (21-31); CHLORIDE 93 mmol/L (97-110); CREATININE 0.97 mg/dl (0.44-1.00); GLUCOSE 101 mg/dl (70-220); MAGNESIUM 2.1 mg/dl (1.7-2.5); PHOSPHORUS 4.6 mg/dl (2.5-4.9); POTASSIUM 4.1 mmol/L (3.5-5.1); SODIUM 137 mmol/L (135-144)
[2018-02-19] MEDS: LEVOTHYROXINE 50 MCG TAB PO (06:18)
[2018-02-19] MEDS: SENNA TAB PO (08:22)
[2018-02-19] MEDS: FUROSEMIDE 40 MG TAB PO ×2 (08:22→09:00)
[2018-02-19] MEDS: ASPIRIN 81 MG TAB PO (08:22)
[2018-02-19] MEDS: DOCUSATE SODIUM 100 MG CAP PO (08:23)
[2018-02-19] MEDS: SPIRONOLACTONE 25 MG TAB PO ×2 (08:23→09:00)
[2018-02-19] MEDS: LOSARTAN 25 MG TAB PO ×2 (08:24→09:00)
== END 2018-02-19 16:30 | DRG 293 ==
LOC: MS1 02-16 01:55 → E/R 09:18 → 6WM 13:33
DX: I11.0 Hypertensive heart disease with heart failure (principal); I50.23 Acute on chronic systolic (congestive) heart failure; I42.9 Cardiomyopathy, unspecified; I10 Essential (primary) hypertension; Z95.0 Presence of cardiac pacemaker; E03.9 Hypothyroidism, unspecified; E78.5 Hyperlipidemia, unspecified; H40.9 Unspecified glaucoma; E66.9 Obesity, unspecified; Z68.33 Body mass index [BMI] 33.0-33.9, adult
CPT/HCPCS: 36600; 71045; 80048; 80053; 80061; 82550; 82553; 82803; 83690; 83735; 83880; 84100; 84443; 84484; 85025; 85610; 85730; 93005; 93306; 94664; 96361; 96374; 97116; 97161; 97165; 97530; 97535; 99291-25